=== PATIENT | female | born 1955 | race Caucasian/White ===

== ENCOUNTER 2016-07-27 05:45 | Inpatient (IN) | payer BC ==
[2016-07-14 12:11] LABS: BASOPHILS 0.2 %; BASOPHILS ABSOLUTE 0.02 10/3/uL (0.0-0.16); EOSINOPHILS 2.7 %; EOSINOPHILS ABSOLUTE 0.23 10/3/uL (0.0-0.53); HEMATOCRIT 45.8 % (36.0-48.0); HEMOGLOBIN 15.5 g/dL (12.0-16.0); IMMATURE GRANULOCYTES 0.8 %; IMMATURE GRANULOCYTES ABSOLUTE 0.07 10/3/uL (0.0-0.11); LYMPHOCYTES 39.6 %; LYMPHOCYTES ABSOLUTE 3.36 10/3/uL (0.67-4.30); MANUAL DIFF NO %; MEAN CORPUS HGB CONC 33.8 g/dL (32.0-36.0); MEAN CORPUSCULAR HEMOGLOB 31.8 pg (26.0-34.0); MEAN PLATELET VOLUME 9.5 fL (9.2-13.0); MONOCYTES 6.6 %; MONOCYTES ABSOLUTE 0.56 10/3/uL (0.21-1.20); NEUTROPHILS 50.1 %; NEUTROPHILS ABSOLUTE 4.24 10/3/uL (2.02-8.40); PLATELET COUNT 359 10/3/uL (150-400); RBC DISTRIBUTION WIDTH 13.1 % (12.0-16.0); RED CELL COUNT 4.87 10/6/uL (4.0-5.6); WHITE BLOOD CELLS 8.5 10/3/uL (4.5-10.5)
[2016-07-14 12:14] LABS: INTERNATIONAL NORMAL RATI 0.9 UNITS (-); PARTIAL THROMBO TIME 25.4 SEC (22.5-37.2); PROTIME (NOT ORD) 12.3 SEC (12.0-14.5)
[2016-07-14 12:26] LABS: A/G RATIO 1.1 (0.7-1.9); ALBUMIN 3.9 G/DL (3.5-5.0); ALKALINE PHOSPHATASE 100 U/L (45-117); BUN (BLOOD UREA NITROGEN) 15 MG/DL (6-23); CALCIUM, SERUM 9.2 MG/DL (8.5-10.4); CHLORIDE, SERUM 102 MMOL/L (96-112); CO2 (CARBON DIOXIDE) 31 MMOL/L (24-34); CREATININE 0.78 MG/DL (0.55-1.02); GFR AFRICAN AMERICAN 96 ML/MIN (>=60); GFR NON AFRICAN AMERICAN 83 ML/MIN (>=60); GLOBULIN 3.5 G/DL (2.5-4.1); GLUCOSE, SERUM 97 MG/DL (60-99); POTASSIUM, SERUM 3.8 MMOL/L (3.5-5.3); SGOT(AST) 24 U/L (5-40); SGPT(ALT) 45 U/L (5-65); SODIUM, SERUM 142 MMOL/L (135-148); TOTAL BILIRUBIN 0.4 MG/DL (0-1.2); TOTAL PROTEIN 7.4 G/DL (6.0-8.5)
[2016-07-14 14:23] LABS: ASCORBIC ACID (UR NOT ORDER) NEG (NEG); BILIRUBIN, URINE NEGATIVE (NEG); KETONE, URINE NEGATIVE (NEG); LEUKOCYTE ESTERASE(NOT OR NEG (NEG); WBC (NOT ORDERED) (RFLEX) 4 (0-5)
--- NOTE | ~2016-07-27 | OP ---
Record Of Operation [facility] [address] [place]. [address] NAME: GEE PEGUERO : 55 STATUS : ADM IN PAT#: [id number] AGE: 60 ADM/REG DATE : 07/27/16 MR#: [id number] REPORT SERV DATE: 07/28/16 DICTATED BY: ODELL CARLIN DATE: 07/27/16 REPORT STATUS : Draft TRANSCRIBED BY: MODL DATE: 07/27/16 DATE OF PROCEDURE: 07/27/2016 PREOPERATIVE DIAGNOSIS: Bilateral knee arthritis. POSTOPERATIVE DIAGNOSIS: Bilateral knee arthritis. PROCEDURE PERFORMED: Bilateral total knee arthroplasty, left then right. SURGEON: Odell Carlin M.D. ASSISTANTS: Sheryl Roberts and Isiaas Crowell. ANESTHESIA: General with adductor blocks and local infusions. PROCEDURE IN DETAIL: The patient is clearly identified and after obtaining informed consent is brought to the operating room at where anesthesia is induced uneventfully with excellent anesthetic effect. This concluded, with right knee being more symptomatic, we approached the right knee first. After Esmarch exsanguination was performed, the affected extremity is prepped and draped in the usual manner and after an appropriate time-out procedure is performed, via an anterior approach, the skin is divided, fascial planes are elevated, paramedial approach to the knee is made. The structures themselves are elevated, excised, and debrided where appropriate, whereupon the patella is carefully everted, calipered, and planed and with the size and type being reproduced with the appropriate-size patella, trialing is performed successfully. At this point, the patella is then carefully subluxed laterally, the knee is flexed, osteophytes around the distal femur are removed, followed by the ACL being divided. The femoral canal is entered and vented, at which point with the intramedullary guide being utilized, the distal femoral cut is made. At this point, the tibia is carefully subluxed anteriorly. The surrounding soft tissues to the tibia are protected with Hohmann retractors, at which point the extramedullary guide is utilized to perform the proximal tibial cut and after cleansing these tissues, the spacer block is utilized in extension to confirm excellent extension, stability, and alignment. The guiding pins are then all carefully removed and the knee is then flexed. The femur is sized, whereupon the anterior, posterior, chamfer, and box cuts are made appropriately. The proximal tibia then is assessed. Osteophytes and surrounding soft tissues are removed and debrided where appropriate. Posterior osteophytes are removed as well. The menisci are excised and thus concluding trialing performed successfully. The proximal tibia then is carefully prepared utilizing proper cement technique. The permanent implants have been carefully placed into position uneventfully whereupon copious irrigation is performed, the permanent tibial implants applied and thus concluded. With this concluded, anesthesia cleared for left lower extremity where upon after Esmarch exsanguination is performed, tourniquet is elevated at 350 mmHg. This is successfully tested. The affected extremity is prepped and draped in the usual manner and after an appropriate time-out procedure is performed, via an anterior approach, the skin is divided, fascial planes are elevated, paramedial approach to the knee is made. The structures Record Of [facility] [address] [place]. [address] NAME: GEE PEGUERO : 55 STATUS : ADM IN PAT#: [id number] AGE: 60 ADM/REG DATE : 07/27/16 MR#: [id number] REPORT SERV DATE: 07/28/16 DICTATED BY: ODELL CARLIN DATE: 07/27/16 REPORT STATUS : Draft TRANSCRIBED BY: NISSA DATE: 07/27/16 themselves are elevated, excised, and debrided where appropriate, whereupon the patella is carefully everted, calipered, and planed and with the size and type being reproduced with the appropriate-size patella, trialing is performed successfully. At this point, the patella is then carefully subluxed laterally, the knee is flexed, osteophytes around the distal femur are removed, followed by the ACL being divided. The femoral canal is entered and vented, at which point with the intramedullary guide being utilized, the distal femoral cut is made. At this point, the tibia is carefully subluxed anteriorly. The surrounding soft tissues to the tibia are protected with Hohmann retractors, at which point the extramedullary guide is utilized to perform the proximal tibial cut and after cleansing these tissues, the spacer block is utilized in extension to confirm excellent extension, stability, and alignment. The guiding pins are then all carefully removed and the knee is then flexed. The femur is sized, whereupon the anterior, posterior, chamfer, and box cuts are made appropriately. The proximal tibia then is assessed. Osteophytes and surrounding soft tissues are removed and debrided where appropriate. Posterior osteophytes are removed as well. The menisci are excised and thus concluding trialing performed successfully. The proximal tibia then is carefully prepared utilizing proper cement technique. The permanent implants have been carefully placed into position uneventfully whereupon copious irrigation is performed, the permanent tibial implants applied and thus concluded. At this point, both lower extremities are cleansed and dressed and the patient is allowed to awaken and is transferred to the bed and subsequently to the recovery room in stable condition having tolerated the procedure well. ESTIMATED BLOOD LOSS: 150 mL. FLUIDS: 1000 mL. TOURNIQUET TIME: Left 34, right 42. PATHOLOGY: Sent specimen. MICROBIOLOGY: None. COMPLICATIONS: None. COUNTS: Sponge and needle count was reportedly correct. Antibiotics were administered appropriately preoperatively and ordered to be discontinued within 23 hours. IMPLANTS: Attune knee by DePuy; femur 4; tibia 4; patella, left 38, right 35; polyethylene 4/7. ANGELIA/NSISA Odell Carlin M.D. Record Of Operation [address] [address] NAME: GEE PEGUERO : 55 STATUS : ADM IN PAT#: [id number] AGE: 60 ADM/REG DATE : 07/27/16 MR#: [id number] REPORT SERV DATE: 07/28/16 DICTATED BY: ODELL CARLIN DATE: 07/27/16 REPORT STATUS : Draft TRANSCRIBED BY: NISSA DATE: 07/27/16 / [id number] CC: Odell Carlin M.D.
[~2016-07-27 05:45] MED LIST: ACIDOPHILU2 PO; ADVAIR100 INH; ASAB PO; CALTRA600D PO; CINNAMON PO; COQ-10200 MG PO; ESTRADIOL; FISH OIL1200 MG PO; FISH-EPA1000 MG PO; FLAXSEED OIL1000 MG PO; FLOVENT DISK50 MCG INH; GLUCCHONDR PO; LIPITOR10 PO; MAGONATE PO; MULTIPLE VIT PO; NASACORTAQ NAS; NIACIN 500 PO; PRIN2.5 PO; RED RICE YEAST PO; T PO; TESTOSTERONE TROCHE PO; VITAMIN D31000 UNIT PO; [UNRECOGNIZED DRUG - CODE]; [UNRECOGNIZED DRUG - OTHER]
[2016-07-28 05:26] LABS: HEMATOCRIT 30.2 % (36.0-48.0); HEMOGLOBIN 10.2 g/dL (12.0-16.0)
[2016-07-28 05:32] LABS: INTERNATIONAL NORMAL RATI 1.1 UNITS (-)
[2016-07-28 05:34] LABS: PROTIME (NOT ORD) 14.5 SEC (12.0-14.5)
[2016-07-28 05:44] LABS: CALCIUM, SERUM 8.9 MG/DL (8.5-10.4); CHLORIDE, SERUM 101 MMOL/L (96-112); CO2 (CARBON DIOXIDE) 27 MMOL/L (24-34); CREATININE 0.83 MG/DL (0.55-1.02); GFR AFRICAN AMERICAN 89 ML/MIN (>=60); GFR NON AFRICAN AMERICAN 77 ML/MIN (>=60); POTASSIUM, SERUM 4.3 MMOL/L (3.5-5.3)
[2016-07-28 05:46] LABS: BUN (BLOOD UREA NITROGEN) 11 MG/DL (6-23); GLUCOSE, SERUM 157 MG/DL (60-99); SODIUM, SERUM 135 MMOL/L (135-148)
[2016-07-29 05:25] LABS: INTERNATIONAL NORMAL RATI 1.5 UNITS (-)
[2016-07-29 05:34] LABS: PROTIME (NOT ORD) 18.1 SEC (12.0-14.5)
[2016-07-29 05:36] LABS: HEMATOCRIT 27.3 % (36.0-48.0); HEMOGLOBIN 9.3 g/dL (12.0-16.0)
[2016-07-29] MEDS ORDERED: C5 PO (16:28)
[2016-07-29] MEDS ORDERED: OXYCOD PO (16:28)
== END 2016-07-29 17:39 | disposition home or self-care (01) | DRG 462 ==
LOC: SDC/OF 05:45 → PACU 11:12 → 3SO 15:38
PROVIDERS: Orthopaedic Surgery
PROC: 0SRC0J9 Replacement of Right Knee Joint with Synthetic Substitute, Cemented, Open Approach (ICD-10-PCS; 2016-07-27)
PROC: 0SRD0J9 Replacement of Left Knee Joint with Synthetic Substitute, Cemented, Open Approach (ICD-10-PCS; principal; 2016-07-27 07:45)
DX: M17.0 Bilateral primary osteoarthritis of knee (principal); I10 Essential (primary) hypertension; E78.5 Hyperlipidemia, unspecified; J45.909 Unspecified asthma, uncomplicated; G47.33 Obstructive sleep apnea (adult) (pediatric)
CPT/HCPCS: 36415; 71020; 80048; 80053; 81001; 85014; 85018; 85025; 85610; 85730; 86850; 86900; 86901; 87641; 88305; 88311; 93005; 97110-GP; 97116-GP; 97161-GP; 97165-GO; A9270-GY; C1776; J0690; J1885; J2250; J2274; J2405; J2550; J2710; J2795; J3010